=== PATIENT | female | born 1980 | race Caucasian/White ===

== ENCOUNTER 2017-11-28 12:58 | Emergency (ER) | payer OTHER ==
[~2017-11-28] VITALS: Ht 167.6 cm; Wt 66.6 kg
[~2017-11-28 12:58] MED LIST: CITA20 PO; DOXY100T PO; GABA100C4 PO; LORA-474 PO
[2017-11-28 13:25] VITALS: BP 116/57; PULSE 66; RESP 16; TEMP 98.1; O2SAT 99
[2017-11-28 14:00] LABS: BILIRUBIN, URINE NEG (NEG); BLOOD, URINE LARGE (NEG); GLUCOSE,URINE NEG (NEG); KETONE, URINE NEG (NEG); NITRITE,URINE NEG (NEG); URINE LEUKOCYTE ESTERASE SMALL (NEG)
[2017-11-28] MEDS ORDERED: PROT40TA PO (14:01)
[2017-11-28] MEDS ORDERED: GABA100C4 PO ×2 (14:01)
[2017-11-28] MEDS ORDERED: CITA20TA4 PO (14:01)
[2017-11-28] MEDS ORDERED: CARA1TAB6 PO (14:01)
[2017-11-28 14:04] LABS: RBC, URINE 0-3 /hpf (0-3); URINE COLOR STRAW (YELLW/STRAW); WBC, URINE 0-2 /hpf (0-5)
[2017-11-28 14:05] LABS: SQUAMOUS EPITHELIAL CELL URINE 0-5 /hpf (0-5)
--- NOTE | 2017-11-28 14:19 | PD ---
HPI Chief Complaint: Flank/Kidney Pain Time Seen by Provider: 13:41 Travel History International Travel<30 days: No Contact w/Intl Traveler<30days: No Traveled to known affect area: No History of Present Illness HPI Patient is a 37-year-old female presents emergency Department with atraumatic right flank and back pain. Patient states that he gets worse when she bends forward. Pain for the past 2 days, not associated with any dysuria nausea vomiting diarrhea constipation vaginal bleeding or vaginal discharge. She did see another physician and was prescribed Flexeril. She was talking with her friend who is a nurse practitioner who states she might have a kidney stone. Patient states his pain is mild, past 2 days, associated signs symptoms as above , constant. PFSH Past Medical History Blood Disorders: No Cancer: No Cardiovascular Problems: No Diminished Hearing: No Endocrine: No Gastrointestinal Disorders: Yes (ABD PAIN AND NAUSEA THIS ADMISSION) GERD: Yes Genitourinary: No Immune Disorder: No Implanted Vascular Access Dvce: No Musculoskeletal: No Neurologic: No Psychiatric: No Reproductive: Yes (ECTOPIC PREG ) Respiratory: No Influenza Vaccination: No PNEUMOCCOCAL Vaccine (Year): 2 ?: Not LMP: 11/25/17 : 3 Para: 1 Ectopic : Yes (ruptured) Past Surgical History AICD: No Arteriovenous Shunt: No Section: Yes (x2) Insulin Pump: No Joint Replacement: No Pacemaker: No Other Surgery: Yes (FELOPIAN TUBE REMOVED, polips removed from vocal cords) Social History Alcohol Use: No Tobacco Use: No Substance Use: No Allergies-Medications (Allergen,Severity, Reaction): Coded Allergies: Sulfa (Sulfonamide Antibiotics) (Unverified Allergy, Unknown, 11/28/17) acetaminophen (Unverified Adverse Reaction, Severe, VOMITING, 11/28/17) PT VOMITS hydrocodone (Unverified Adverse Reaction, Severe, VOMITING, 11/28/17) PT VOMITS Reported Meds & Prescriptions Reported Meds & Active Scripts Active Reported Carafate (Sucralfate) 1 Gram Tab 1 Gm PO QID On empty stomach Protonix (Pantoprazole Sodium) 40 Mg Tab 40 Mg PO DAILY Citalopram (Citalopram Hydrobromide) 20 Mg Tab 20 Mg PO DAILY Gabapentin 100 Mg Cap 100 Mg PO DAILY Gabapentin 100 Mg Cap 200 Mg PO BID Review of Systems Except as stated in HPI: all other systems reviewed are Neg Physical Exam Narrative GENERAL: Well-developed well-nourished, quite pleasant, no obvious distress. SKIN: Focused skin assessment warm/dry. HEAD: Atraumatic. Normocephalic. EYES: Pupils equal and round. No scleral icterus. No injection or drainage. ENT: No nasal bleeding or discharge. Mucous membranes pink and moist. NECK: Trachea midline. No JVD. CARDIOVASCULAR: Regular rate and rhythm. No murmur appreciated. RESPIRATORY: No accessory muscle use. Clear to auscultation. Breath sounds equal bilaterally. GASTROINTESTINAL: Abdomen soft, non-tender, nondistended. Hepatic and splenic margins not palpable. No CVA tenderness MUSCULOSKELETAL: No obvious deformities. No clubbing. No cyanosis. No edema. No midline CT or L-spine tenderness, no bruising no lacerations seen in the flank. NEUROLOGICAL: Awake and alert. No obvious cranial nerve deficits. Motor grossly within normal limits. Normal speech. PSYCHIATRIC: Appropriate mood and affect; insight and judgment normal. Data Data Last Documented VS Vital Signs Date Time Temp Pulse Resp B/P (MAP) Pulse Ox O2 Delivery O2 Flow Rate FiO2 11/28/17 16:03 11/28/17 15:56 62 16 99 Room Air 11/28/17 13:25 98.1 Orders Orders Urinalysis - C+S If Indicated (11/28/17 13:42) Ed Urine Pregnancytest Poc (11/28/17 13:42) Complete Blood Count With Diff (11/28/17 14:17) Comprehensive Metabolic Panel (11/28/17 14:17) Lipase (11/28/17 14:17) Ct Abd/Pel W/O Iv Contrast (11/28/17 14:17) Iv Access Insert/Monitor (11/28/17 14:17) Ecg Monitoring (11/28/17 14:17) Oximetry (11/28/17 14:17) Sodium Chloride 0.9% Flush (Ns Flush) (11/28/17 14:30) Ed Discharge Order (11/28/17 15:31) Labs Laboratory Tests Test 11/28/17 13:30 11/28/17 14:30 Urine Collection Type CLEAN CATCH Urine Color STRAW Urine Turbidity CLEAR Urine pH 6.0 Urine Specific [place] 1.005 Urine Protein NEG mg/dL Urine Glucose (UA) NEG mg/dL Urine Ketones NEG mg/dL Urine Occult Blood LARGE Urine Nitrite NEG Urine Bilirubin NEG Urine Leukocyte Esterase SMALL Urine RBC 0-3 /hpf Urine WBC 0-2 /hpf Urine Squamous Epithelial Cells 0-5 /hpf Microscopic Urinalysis Comment CULT NOT INDICATED White Blood Count 6.9 TH/MM3 Red Blood Count 3.99 MIL/MM3 Hemoglobin 11.4 GM/DL Hematocrit 34.9 % Mean Corpuscular Volume 87.4 FL Mean Corpuscular Hemoglobin 28.5 PG Mean Corpuscular Hemoglobin Concent 32.6 % Red Cell Distribution Width 13.2 % Platelet Count 268 TH/MM3 Mean Platelet Volume 8.8 FL Neutrophils (%) (Auto) 68.1 % Lymphocytes (%) (Auto) 22.5 % Monocytes (%) (Auto) 6.0 % Eosinophils (%) (Auto) 2.1 % Basophils (%) (Auto) 1.3 % Neutrophils # (Auto) 4.7 TH/MM3 Lymphocytes # (Auto) 1.6 TH/MM3 Monocytes # (Auto) 0.4 TH/MM3 Eosinophils # (Auto) 0.1 TH/MM3 Basophils # (Auto) 0.1 TH/MM3 CBC Comment DIFF FINAL Differential Comment Blood Urea Nitrogen 13 MG/DL Creatinine 0.73 MG/DL Random Glucose 89 MG/DL Total Protein 7.4 GM/DL Albumin 3.4 GM/DL Calcium Level 8.4 MG/DL Alkaline Phosphatase 55 U/L Aspartate Amino Transf (AST/SGOT) 15 U/L Alanine Aminotransferase (ALT/SGPT) 13 U/L Total Bilirubin 0.3 MG/DL Sodium Level 139 MEQ/L Potassium Level 3.8 MEQ/L Chloride Level 104 MEQ/L Carbon Dioxide Level 30.9 MEQ/L Anion Gap 4 MEQ/L Estimat Glomerular Filtration Rate 90 ML/MIN Lipase 165 U/L [facility] Medical Decision Making Medical Screen Exam Complete: Yes Emergency Medical Condition: Yes Differential Diagnosis Musculoskeletal pain, strain, sprain, kidney stone unlikely. Narrative Course Patient roomed in the emergency department, dipstick positive for hemoglobin but otherwise laboratory workup negative, no hematuria seen on microscopic analysis. Discussed with the patient that her symptoms are highly musculoskeletal but given this is her second presentation to a physician would recommend CAT scan of the abdomen to rule out other pathology. The patient is agreeable. Last 24 hours Impressions Abdomen/Pelvis CT 11/28/17 [id number] Signed Impressions: Service Date/Time: Tuesday, November 28, 2017 15:08 - CONCLUSION: 1. No acute inflammatory process. 2. No renal calculi or hydronephrosis. Sukhwinder Sandra MD Discussed with the patient the findings, recommended symptomatic management, she was offered pain medicine in the emergency department and declined. She is stable for discharge for follow-up the primary care physician. Diagnosis Primary Impression: Right-sided back pain Disposition: 01 DISCHARGE HOME Condition: Stable Soham Parker MD Nov 28, 2017 14:19
[2017-11-28] MEDS ORDERED: SODIUM CHLORIDE 0.9% FLUSH 10 ML FLUSH IV FLUSH PRN (14:30)
[2017-11-28 14:42] LABS: AUTOMATED NEUTROPHIL # 4.7 TH/MM3 (1.8-7.7); BASOPHIL # 0.1 TH/MM3 (0-0.2); BASOPHIL % 1.3 % (0.0-2.0); EOSINOPHIL # 0.1 TH/MM3 (0-0.4); EOSINOPHIL % 2.1 % (0.0-4.0); HEMATOCRIT 34.9 % (35.0-46.0); HEMOGLOBIN 11.4 GM/DL (11.6-15.3); LYMPH % 22.5 % (9.0-44.0); LYMPHOCYTE # 1.6 TH/MM3 (1.0-4.8); MEAN CELL VOLUME 87.4 FL (80.0-100.0); MEAN CORPUSCULAR HEMOGLOBIN 28.5 PG (27.0-34.0); MEAN CORPUSCULAR HGB CONC 32.6 % (32.0-36.0); MEAN PLATELET VOLUME 8.8 FL (7.0-11.0); MONOCYTE # 0.4 TH/MM3 (0-0.9); NEUT % 68.1 % (16.0-70.0); PLATELET COUNT 268 TH/MM3 (150-450); RED BLOOD COUNT 3.99 MIL/MM3 (4.00-5.30); RED CELL DISTRIBUTION WIDTH 13.2 % (11.6-17.2); WHITE BLOOD COUNT 6.9 TH/MM3 (4.0-11.0)
[2017-11-28 14:49] LABS: CHLORIDE 104 MEQ/L (98-107); SODIUM (NA) 139 MEQ/L (136-145)
[2017-11-28 14:53] LABS: ALBUMIN 3.4 GM/DL (3.4-5.0); BICARBONATE 30.9 MEQ/L (21.0-32.0); BLOOD UREA NITROGEN 13 MG/DL (7-18); CALCIUM 8.4 MG/DL (8.5-10.1); GLUCOSE,RANDOM 89 MG/DL (74-106); LIPASE 165 U/L (73-393)
[2017-11-28 14:56] LABS: ALT (GPT) 13 U/L (10-53); AST (GOT) 15 U/L (15-37); CREATININE 0.73 MG/DL (0.50-1.00); GLOMERULAR FILTRATION RATE 90 ML/MIN (>89)
[2017-11-28 14:58] LABS: TOTAL BILIRUBIN ADULT 0.3 MG/DL (0.2-1.0); TOTAL PROTEIN 7.4 GM/DL (6.4-8.2)
[2017-11-28 14:59] LABS: ALKALINE PHOSPHATASE 55 U/L (45-117)
[2017-11-28 15:04] VITALS: RESP 16; O2SAT 99
--- NOTE | 2017-11-28 15:20 | RADRPT ---
EXAM DATE/TIME: 11/28/2017 15:08 [facility] COMPARISON: No previous studies available for comparison. INDICATIONS : Right flank pain. Evaluate for renal calculi. ORAL CONTRAST: No oral contrast ingested. RADIATION DOSE: 9.28 CTDIvol (mGy) MEDICAL HISTORY : Gastroesophageal reflux disease. SURGICAL HISTORY : section. Fallopian tube removed. ENCOUNTER: Initial ACUITY: 2 days PAIN SCALE: 4/10 LOCATION: Right flank TECHNIQUE: Volumetric scanning of the abdomen and pelvis was performed. Using automated exposure control and ad justment of the mA and/or kV according to patient size, radiation dose was kept as low as reasonably achievable to obtain optimal diagnostic quality images. DICOM format image data is available electro nically for review and comparison. FINDINGS: LOWER LUNGS: The visualized lower lungs are clear. LIVER: Homogeneous density without lesion. There is no dilation of the biliary tree. No calcified gallston es. SPLEEN: Normal size without lesion. PANCREAS: Within normal limits. KIDNEYS: Normal in size and shape. There is no mass, stone, or hydronephrosis. ADRENAL GLANDS: Within normal limits. VASCULAR: There is no aortic aneurysm. BOWEL/MESENTERY: The stomach, small bowel, and colon demonstrate no acute abnormality. There is no free intraperitone al air or fluid. Appendix not seen but no inflammatory changes right lower quadrant. ABDOMINAL WALL: Within normal limits. RETROPERITONEUM: There is no lymphadenopathy. BLADDER: No wall thickening or mass. REPRODUCTIVE: Within normal limits. INGUINAL: There is no lymphadenopathy or hernia. MUSCULOSKELETAL: Within normal limits for patient age. CONCLUSION: 1. No acute inflammatory process. 2. No renal calculi or hydronephrosis. Sukhwinder Sandra MD on November 28, 2017 at 15:15 Board Certified Radiologist. This report was verified electronically.
[2017-11-28 15:56] VITALS: BP 106/61; PULSE 62; RESP 16; O2SAT 99
== END 2017-11-28 16:04 | disposition home or self-care (01) ==
LOC: PHED 12:58
DX: M54.9 Dorsalgia, unspecified (principal); K21.9 Gastro-esophageal reflux disease without esophagitis; Z88.2 Allergy status to sulfonamides
CPT/HCPCS: 74176; 80053; 81001; 83690; 84703; 85025; 99284